=== PATIENT | female | born 1975 | race Caucasian/White ===

== ENCOUNTER → 2016-08-26 | Outpatient (CLI) | payer OTHER ==
[~2016-08-26] MED LIST: EFFEXOR75 M3 PO; MOTRIN600 M2 PO; TOLTERODINE TART4 MG PO; TRAMADOL HCL50 M1 PO; ZESTORETIC 20-1 EAC1 PO; [UNRECOGNIZED DRUG - OTHER] PO
--- NOTE | ~2016-08-26 | CR63 ---
[facility] A Service of [facility] RADIOLOGY TEXT RESULTS PATIENT: MARNIE GOSS LOCATION: [facility] : 71 UNIT #: [id number] AGE: [address]: Demetrio Medina III, MD SEX: F ORDER DR: [id number] [facility] [address] [place], [place] [address] [id number] O MR#: [id number] Acc #: [id number] NAME: MARNIE GOSS : 1975 SEX: F STUDY DATE/TIME: 08/26/2016 8:07 UNIT: [facility] ROOM: STUDY DESCRIPTION: CR Chest 2 View Attending Physician: Demetrio Medina III, M.D. Referring Physician: Demetrio Medina III, M.D. Ordering Physician: Demetrio Medina III, M.D. Primary Care Physician: Karuna Lundy Aprn MEDICAL IMAGING REPORT This report is preliminary unless electronic signature is present EXAM PA and lateral chest dated 08/26/2016 COMPARISON STUDIES None HISTORY Preop possible paraesophageal hernia repair. FINDINGS PA and lateral views are obtained. The cardiovascular configuration is normal. Lungs are clear. CONCLUSION Normal chest. Dictated by... Jeremias Brooke M.D. THIS IS AN ELECTRONICALLY VERIFIED REPORT Jeremias Brooke M.D. at 08/29/2016 4:53 PM Ritu TD: 08/26/2016 13:08 JOB #: [id number] MEDICAL IMAGING REPORT Page 1 of 1 COPY
--- NOTE | ~2016-08-26 | CR97 ---
[facility] A Service of [facility] RADIOLOGY TEXT RESULTS PATIENT: MARNIE GOSS LOCATION: [facility] : 71 UNIT #: [id number] AGE: [address]: Demetrio Medina III, MD SEX: F ORDER DR: [id number] [facility] [address] [place], [place] [address] [id number] O MR#: [id number] Acc #: [id number] NAME: MARNIE GOSS : 1975 SEX: F STUDY DATE/TIME: 08/26/2016 8:24 UNIT: [facility] ROOM: STUDY DESCRIPTION: CR Esophagram Attending Physician: Demetrio Medina III, M.D. Referring Physician: Demetrio Medina III, M.D. Ordering Physician: Demetrio Medina III, M.D. Primary Care Physician: Karuna Lundy Aprn MEDICAL IMAGING REPORT This report is preliminary unless electronic signature is present EXAM Barium esophagram INDICATION Morbid obesity. Preop for Lap-Band surgery. The fluoro time was 0.3 minutes. 6 images were taken. FINDINGS Study demonstrates multiple tertiary contractions within the esophagus. There is a tiny sliding hiatal hernia. Cholecystectomy clips. IMPRESSION Multiple tertiary contractions. Tiny sliding hiatal hernia. Dictated by... Earnest Luis M.D. THIS IS AN ELECTRONICALLY VERIFIED REPORT Earnest Luis M.D. at 08/26/2016 4:47 PM Keith TD: 08/26/2016 10:55 JOB #: [id number] MEDICAL IMAGING REPORT Page 1 of 1 COPY
--- NOTE | ~2016-08-26 | EKG ---
PATIENT: MARNIE GOSS UNIT #: [id number] Ventricular Rate: 78 BPM Atrial Rate: 78 BPM P-R Interval: 150 ms QRS Duration: 86 ms Q-T Interval: 366 ms QTC Calculation(Bezet): 417 ms P [place]: 28 degrees Calculated R [place]: 0 degrees Calculated T [place]: 25 degrees Diagnosis Line: Normal sinus rhythm Diagnosis Line: Normal ECG Diagnosis Line: No previous ECGs available Diagnosis Line: Confirmed by ANGELY PELAEZ MD ([id number]) on Diagnosis Line: 08/27/2016 6:44:23 AM INTERPRETING MD: GEORGINA
[2016-08-26 09:55] LABS: HEMOGLOBIN 13.1 gm/dL (12.0-16.0); MEAN CELL VOLUME 80.8 FL (83-96); MEAN CORPUSCULAR HEMOGLOBIN 26.6 PG (28-34); MEAN CORPUSCULAR HGB CONC 32.9 g/dL (30-36); RED BLOOD COUNT 4.94 X10e (3.90-5.30); RED CELL DISTRIBUTION WIDTH 14.1 % (11.0-15.5); WHITE BLOOD COUNT 6.3 X10e3 (4.0-10.5)
[2016-08-26 10:51] LABS: ALBUMIN SERUM 3.6 g/dL (3.5-5.0); BILIRUBIN,TOTAL 0.6 mg/dL (0.2-2.0); BUN/CREATININE RATIO 22.85; CALCIUM SERUM 9.4 mg/dL (8.4-10.2); CREATININE SERUM 0.7 mg/dL (0.6-1.4); GLOM FILT RATE Estimated 106.1 mL/min (>60); POTASSIUM 4.1 mmol/L (3.5-5.1); PROTEIN TOTAL SERUM 6.8 g/dL (6.0-8.3)
== END | disposition home or self-care (01) ==
LOC: CRAD 07:50
PROVIDERS: Surgery
DX: Z01.818 Encounter for other preprocedural examination (principal); K22.8 Other specified diseases of esophagus; K44.9 Diaphragmatic hernia without obstruction or gangrene
CPT/HCPCS: 36415; 71020; 74220; 80053; 80061; 84443; 85027; 93005

== ENCOUNTER → 2016-09-07 | Day surgery (SDC) | payer OTHER ==
--- NOTE | ~2016-09-07 | CR7 ---
[facility] A Service of [facility] & [facility] RADIOLOGY TEXT RESULTS PATIENT: MARNIE GOSS LOCATION: [facility] : 71 UNIT #: [id number] AGE: [address]: Demetrio Medina III, MD SEX: F ORDER DR: [id number] [facility] [address] [place], [place] [address] [id number] O MR#: [id number] Acc #: [id number] NAME: MARNIE GOSS : 1975 SEX: F STUDY DATE/TIME: UNIT: [facility] ROOM: STUDY DESCRIPTION: CR Abdomen Single AP View Attending Physician: Demetrio Medina III, M.D. Ordering Physician: Demetrio Medina III, M.D. Primary Care Physician: Karuna Lundy Aprn MEDICAL IMAGING REPORT This report is preliminary unless electronic signature is present EXAM Abdomen one-view 09/07/2016 0939 hours HISTORY Morbid obesity, postop Lap-Band placement today. COMPARISON Esophagram 08/26/2016 FINDINGS Portable upright chest demonstrates a Lap-Band overlying the left T10 costovertebral articulation oriented at 40 degrees from vertical. Radiopaque tubing courses inferiorly to a port projecting over the left aspect of L5. Bowel gas pattern is unremarkable. There is linear bibasilar atelectasis in the lungs. IMPRESSION 1. Postop lap-band placement overlying the left T10 costovertebral articulation oriented at 40 degrees from vertical. Radiopaque tubing courses inferiorly to a port projecting over the left aspect of L5. The bowel gas pattern is unremarkable. 2. There is bibasilar atelectasis in the lungs. Dictated by... Cindy Barclay M.D. THIS IS AN ELECTRONICALLY VERIFIED REPORT Cindy Barclay M.D. at 09/07/2016 2:31 PM SMM/miller TD: 09/07/2016 12:56 JOB #: [id number] [facility] A Service of [facility] & [facility] RADIOLOGY TEXT RESULTS PATIENT: MARNIE GOSS LOCATION: [facility] #: [id number] : 71 UNIT #: [id number] AGE: [address]: Demetrio Medina III, MD SEX: F ORDER DR: MEDICAL IMAGING REPORT Page 1 of 1 COPY
--- NOTE | ~2016-09-07 | OR ---
Unit #: [id number] #: [id number] Patient: MARNIE GOSS L [id number] [facility] [address] [place], [place] [address] [id number] O MR#: [id number] NAME: MARNIE GOSS ROOM: Date of Procedure: 09/07/2016 Admission Date: 09/07/2016 Surgeon: Demetrio Medina III, M.D. : 1975 Attending Physician: Demetrio Medina III, M.D. Primary Care Physician: Karuna Lundy Aprn PROCEDURE OPERATIVE NOTE PREOPERATIVE DIAGNOSIS Chronic morbid obesity. POSTOPERATIVE DIAGNOSIS Chronic morbid obesity. SECONDARY DIAGNOSIS Anterior paraesophageal hernia. PROCEDURE PERFORMED Laparoscopic adjusted gastric banding (AP standard with low profile port) and laparoscopic paraesophageal hernia repair. SURGEON Dr. Demetrio Medina III. PASTE [employer] SUPERVISOR Dr. Jeremias Johnson. SPECIMENS None. COMPLICATIONS None apparent. ESTIMATED BLOOD LOSS Minimal. INDICATIONS FOR PROCEDURE This is a 41-year-old lady who has chronic morbid obesity with a BMI of 39 and associated comorbidities of hypertension and sleep apnea. She went to the bariatric program at [facility] and understands the risks and benefits of the procedure. DESCRIPTION OF PROCEDURE After consent was obtained, including the risks and benefits of slippage, erosion, port dysfunction, and possible failure of weight loss due to noncompliance, the patient was taken to the operating room and placed in the supine position. General anesthetic was administered and the abdomen was prepped and draped in standard surgical fashion. I began by making a 2 cm incision just above and to the left of the Unit #: [id number] #: [id number] Patient: MARNIE GOSS L umbilicus. I used a Visiport to enter the peritoneal cavity without any difficulty. C02 pneumoperitoneum was then established. Next, I placed a 5 mm port in the right upper quadrant, a 5 mm Mary Beth liver retractor in the subxiphoid region to provide exposure of the gastroesophageal junction. Next, a 10 mm port was placed in the left upper quadrant and a 5 mm port was placed in the left lateral subcostal region. I began by performing an examination of the GE junction to evaluate for a hiatal hernia. We then scored the peritoneal attachments overlying the angle of His. I then opened up the clear space in the gastrohepatic ligament, and then using 2 blunt graspers, I identified the small fat pad crossing over the right crura. I swept the fat anterior to the crura off the crura and using the pars flaccida, I created a retrogastric tunnel where the blunt grasper exited at the angle of His. Once I had made this tunnel safely, I then inserted an Allergan AP band into the abdominal cavity. This adjustable gastric band was then place around the upper part of the stomach and fastened and buckled anteriorly. We then tacked the lateral fundus over the band to the proximal pouch with 2 interrupted 0 Ethibond sutures. I then used a third stitch to imbricate the excess anterior stomach by going from the lesser curvature up towards where the last stitch was placed. We then had excellent hemostasis. I removed the Mary Beth liver retractor. We then removed the port tubing through the initial port incision. The rest of the ports were removed, and the pneumoperitoneum was released. I then left a small tail on the tubing. We then attached the port to the excess band tubing. We placed a piece of Prolene mesh along the back side of the port and used a Prolene stitch to anchor this mesh in place. We then trimmed the excess mesh so that just a small footprint of mesh was in place behind the port. I then inserted the tubing back into the abdominal cavity, and we placed the port into a small pocket that was made just inferior to where our initial port incision was made. The mesh was in direct contact with the fascia, and this will scar in place to hold the port in place. We then injected all the port sites with 0.25% plain Marcaine, and I reapproximated the skin edges with interrupted 4-0 Vicryl subcuticular sutures. Steri-strips were then applied. The patient tolerated the procedure without any problems and returned to the recovery room in stable condition. ADDENDUM After exposure of the GE junction, the patient was noted to have a small to medium sized anterior paraesophageal hernia. I squared the phrenoesophageal ligament and reduced the hernia defect, and, after identifying both the right and left crura, reapproximated the defect with an interrupted 0 Ethibond figure of eight suture. I then proceeded with the case as listed above. Dictated by... Demetrio Medina III, M.D. VCL/philip TD: 09/08/2016 06:09 JOB #: [id number] Unit #: [id number] #: [id number] Patient: MARNIE GOSS PROCEDURE OPERATIVE NOTE Page 1 of 1 X Demetrio Medina III, MD PROCEDURE OPERATIVE NOTE
== END | disposition home or self-care (01) ==
LOC: CSUR 06:20
DX: E66.01 Morbid (severe) obesity due to excess calories (principal); K44.9 Diaphragmatic hernia without obstruction or gangrene; F32.9 Major depressive disorder, single episode, unspecified; F41.9 Anxiety disorder, unspecified; I10 Essential (primary) hypertension; G47.33 Obstructive sleep apnea (adult) (pediatric); G43.909 Migraine, unspecified, not intractable, without status migrainosus; Z68.38 Body mass index [BMI] 38.0-38.9, adult; Z87.19 Personal history of other diseases of the digestive system; Z87.442 Personal history of urinary calculi; Z87.891 Personal history of nicotine dependence; Z80.0 Family history of malignant neoplasm of digestive organs; Z80.3 Family history of malignant neoplasm of breast; Z88.8 Allergy status to other drugs, medicaments and biological substances; Z79.899 Other long term (current) drug therapy; Z90.49 Acquired absence of other specified parts of digestive tract
CPT/HCPCS: 74000; 84703; C1781; J0690; J1650; J1885; J2250; J2405; J3010